=== PATIENT | female | born 1930 | race Caucasian/White ===

== ENCOUNTER 2016-12-04 17:28 | Emergency (ER) | payer OTHER ==
[2016-12-04] MEDS ORDERED: NORMAL SALINE 500 ML IV ONE (18:09)
[2016-12-04 18:10] LABS: BASOPHILS 0.3 % (0.0-2.0); HEMATOCRIT 27.9 % (36.0-48.0); HEMOGLOBIN 9.2 g/dL (12.0-16.0); LYMPHOCYTES 19.7 % (20.0-40.0); LYMPHOCYTES# 1.8 X 10^3uL (0.8-3.8); MEAN CELL VOLUME 88.8 fL (80.0-100.0); MEAN CORPUS. HGB CONCENTRATION 33.1 g/dL (32.0-36.0); MEAN CORPUSCULAR HEMOGLOBIN 29.4 pg (29.0-35.0); MEAN PLATELET VOLUME 7.6 fL (7.4-10.4); MONOCYTES 10.2 % (2.0-10.0); MONOCYTES# 0.9 X 10^3uL (0.2-1.0); NEUTROPHILS 69.8 % (54.0-75.0); NEUTROPHILS# 6.3 X 10^3uL (2.6-6.7); PLATELET COUNT 422 X 10^3uL (130-440); RED BLOOD COUNT 3.14 X 10^6uL (4.20-6.10); RED CELL DISTRIBUTION WIDTH 15.5 % (11.5-14.5)
[2016-12-04 18:16] LABS: URINE MUCUS NONE SEEN (Up to 25%); URINE RBC NONE SEEN (0-5/hpf); URINE SQUAMOUS EPITHELIAL CELL NONE SEEN (<= 15/hpf); URINE WBC NONE SEEN (0-4/hpf)
[2016-12-04 18:21] LABS: BLOOD UREA NITROGEN 32 mg/dL (7-17); CALCIUM 9.2 mg/dL (8.4-10.2); CHLORIDE 109 mmol/L (98-107); CREATININE 1.2 mg/dL (0.5-1.0); GLUCOSE 97 mg/dL (70-100); POTASSIUM 4.2 mmol/L (3.5-5.1); SODIUM 139 mmol/L (137-145)
[2016-12-04 18:24] LABS: URINE APPEARANCE CLEAR; URINE BILIRUBIN NEGATIVE (NEGATIVE); URINE BLOOD TRACE (NEGATIVE); URINE COLOR YELLOW; URINE GLUCOSE NORMAL (NEGATIVE); URINE KETONE NEGATIVE (NEGATIVE); URINE LEUKOCYTE ESTERASE NEGATIVE (NEGATIVE); URINE NITRITE NEGATIVE (NEGATIVE); URINE PH 5.5 (5-7); URINE PROTEIN 30mg/dL (1+) (NEG - TRACE); URINE SPECIFIC GRAVITY 1.025 (0.001-1.035); URINE UROBILINOGEN 1mg/dL (Normal) (NEG-1mg/dL)
[2016-12-04 18:25] LABS: URINE AMORPHOUS SEDIMENT UP TO 25%/lpf (Up to 25%); URINE BACTERIA NONE SEEN (<10/hpf)
--- NOTE | 2016-12-04 19:00 | CT REPORT ---
HISTORY: Fall. Dementia. COMPARISON: None. TECHNIQUE: Unenhanced axial CT of the head. Dose reduction technique was utilized. FINDINGS: There is moderate to marked dilatation of the lateral and third ventricles which are out of portion t o the degree of sulcal prominence raising the possibility of normal pressure hydrocephalus. There is mild dilatation of the ventricle. The basilar cisterns are patent. There is no mass lesion or midline shift. There is low attenuation in the periventricular and subcortical white matter which is nonspe cific, but likely due to small vessel ischemic disease. The cadet-white differentiation appears preser nelly with no evidence of acute infarct. There is no evidence of acute intracranial hemorrhage. The b vicky calvaria appears intact. There are bilateral cataract replacements. The visualized paranasal si nuses and mastoid air cells appear clear. There is moderate atherosclerosis involving the cavernous i nternal carotid and mild atherosclerosis involving the distal vertebral arteries. IMPRESSION: 1. Moderate to marked dilatation of the lateral and third ventricles which are out of proportion to the degree of sulcal prominence raising the possibility of normal pressure hydrocephalus. 2. Moderate white matter small vessel ischemic disease. 3. No evidence of acute intracranial hemorrhage. The results were communicated to SHAHEED WADE MD at 12/04/2016 6:56 PM. Final Electronic Signature: This report was electronically signed by Ricky Samuel MD on 12/04/2016 6: 58 PM. [place] /
--- NOTE | 2016-12-04 19:21 | ER PHYSICIAN DOCUMENTATION ---
Physician Documentation [facility] Name:Mariza Aleman Age:86 yrs Sex:Female :1930 Arrival Date:12/04/2016 Time:17:28 Bed4 Private MD: Junior Green Disposition: 12/04/16 18:56 Discharged to Home/Self Care. Impression: Dehydration, Head Injury, Chronic Dementia, Anemia. - Condition is Fair. - Discharge Instructions: DEHYDRATION (6y-Adult), DEMENTIA, Any Type, HEAD INJURY, No Wake-Up (Adult), [place]an Anemia - ANEMIA, Type Not Specified (Adult). - Medical Reconciliation form form. - Follow up: Private Physician; When: 2 - 3 days; Reason: Recheck today's complaints, Continuance of care. - Problem is new. - Symptoms are resolved. - Notes: Encourage fluids. Rest. Follow up with your physician as soon as possible upon returning home. Review your CT Scan with your Neurologist to rule out Normal Pressure Hydrocephalus. HPI: 12/04 17:35 This 86 yrs old Female presents to ER via Private Vehicle with complaints of cd Fall Injury. 17:35 Details of fall: The patient fell from an upright position, while walking. Onset: The cd symptom(s)/episode began/occurred acutely, 2 day(s) ago. Associated injuries: The patient sustained injury to the head, abrasion, contusion, hematoma. Associated signs and symptoms: Pertinent positives: confusion, memory problems, weakness, and blank stare earlier today. Also saying things that do not make sense. states she has Dementia and has had confused thinking for many months. Her daughter has not been around to see it. She has not been eating well or drinking many fluids. They travelled from [place] for a short vacation in [place]. They have been at this elevation for 5 days now., Pertinent negatives: abdominal pain, chest pain, headache, nausea, numbness, seizure, vomiting, Loss of consciousness: the patient experienced no loss of consciousness. Severity of symptoms: At their worst the symptoms were moderate, in the emergency department the symptoms have resolved, and did so earlier today. The patient has experienced similar episodes in the past, chronically, and the symptoms today are exactly the same, for months per the patient's . Historical: - Allergies: No known drug Allergies; - Home Meds: 1. aspirin 81 mg oral tab 2. calcium carbonate 650 mg calcium (1,625 mg) oral tab 3. carvedilol 25 mg oral tab 4. Co Q-10 100 mg oral cap 5. Diflucan Oral 6. hydroxychloroquine oral 7. levothyroxine 50 mcg oral tab 1 tab once daily 8. Benicar 5 mg oral tab - PMHx: Hypertension; HYPOTHYROIDISM; CAD; DEMENTIA; ARTHRITIS; - PSHx: CABG; - Tetanus: < 10 years. - Ebola Screening: : Patient negative for fever greater than or equal to 101.5 degrees Fahrenheit, and additional compatible Ebola Virus Disease symptoms. Patient denies exposure to infectious person. Patient denies travel to an Ebola-affected area in the 21 days before illness onset. No symptoms or risks identified at this time. . - Immunization history: Pneumococcal vaccine is up to date, Flu Vaccine < 1 year. - Social history: Smoking status: Patient states was never smoker of tobacco. Patient/guardian denies using alcohol, street drugs. ROS: 18:20 Eyes: Negative for injury, pain, redness, discharge, blurry vision and loss of vision. cd ENT: Negative for injury, pain, epistaxis and discharge. Neck: Negative for injury, pain, stiffness and swelling. Cardiovascular: Negative for chest pain, palpitations, edema and pleuritic pain. Respiratory: Negative for shortness of breath, dyspnea on exertion, cough, sputum production, wheezing, hemoptysis and pleuritic chest pain. Abdomen/GI: Negative for abdominal pain, nausea, vomiting, diarrhea, constipation, distension, melena, hematochezia and hematemesis. Back: Negative for injury, pain or muscle spasms. 18:20 : Negative for injury, bleeding, discharge, dysuria, frequency, urgency and swelling. cd 18:20 Constitutional: Positive for poor PO intake, Negative for chills, fever. 18:20 MS/extremity: Negative for acute changes, injury or acute deformity. 18:20 Skin: Positive for laceration(s), of the left sikhism. 18:20 Neuro: Positive for altered mental status, weakness, confusion, disorientation, Negative for dizziness, gait disturbance, headache, numbness, seizure activity, syncope, near syncope, tingling, visual changes. 18:20 All other systems are negative. Exam: ENT: Nares patent. No nasal discharge, no septal abnormalities noted. Tympanic membranes are normal and external auditory canals are clear. Oropharynx with no redness, swelling, or masses, exudates, or evidence of obstruction, uvula midline. Mucous membranes dry Chest/axilla: Normal chest wall appearance and motion. Nontender with no deformity. No lesions are appreciated. Cardiovascular: Regular rate and rhythm with a normal S1 and S2. No gallops, murmurs, or rubs. Normal PMI, no JVD. No pulse deficits. Respiratory: Lungs have equal breath sounds bilaterally, clear to auscultation and percussion. No rales, rhonchi or wheezes noted. No increased work of breathing, no retractions or nasal flaring. Abdomen/GI: Soft, non-tender, with normal bowel sounds. No distension or tympany. No guarding or rebound. No evidence of tenderness throughout. Back: No spinal tenderness. No costovertebral tenderness. Full range of motion. Skin: Warm, dry with normal turgor. Normal color with no rashes, no lesions, and no evidence of cellulitis. 18:20 MS/ Extremity: Pulses equal, no cyanosis. Neurovascular intact. Full, normal range cd of motion. 18:20 Constitutional: The patient appears alert, awake, non-diaphoretic, non-toxic, well developed, well nourished, frail. 18:20 Head/face: Noted is abrasion(s), that are moderate, of the left temporal area, contusion, that is superficial, of the left temporal area, hematoma, that is mild, of the left temporal area, Basilar skull fracture findings: the patient does not have obvious signs of a basilar skull fracture, no Wyatt signs, no hemotympanum, no nasal drainage, no racoon eyes, Sinus tenderness, is not appreciated. 18:20 Neck: External neck: is normal, no acute changes, C-spine: appears grossly normal, no acute changes, vertebral tenderness, is not appreciated. 18:20 Musculoskeletal/extremity: Exam is negative for acute changes. 18:20 Neuro: Orientation: appropriate for stated age, to person, place & time. Mentation: lucid, able to follow commands, Memory: immediate memory is impaired, remote memory is impaired, Cranial nerves: CN II- XII are normal as tested, Motor: is normal, Sensation: is normal. Vital Signs: 17:56 BP 175 / 52; Pulse 70; Resp 19; Temp 98.0; Pulse Ox 94% on R/A; Weight 34.02 kg; Height mk2 5 ft. (152.40 cm); Pain 0/10; 18:32 BP 169 / 53; Pulse 66; Resp 18; Pulse Ox 96% on R/A; tg 18:36 BP 169 / 53; Pulse 67; Resp 16; Pulse Ox 97% on R/A; Pain 0/10; mk2 17:56 Body Mass Index 14.65 (34.02 kg, 152.40 cm) mk2 [place] Coma Score: 18:20 Eye Response: spontaneous(4). Verbal Response: confused(4). Motor Response: obeys cd commands(6). Total: 14. MDM: 17:58 Patient medically screened. cd 19:00 Differential diagnosis: abrasion, closed head injury, contusion, fracture, ICH, UTI, cd Anemia. Data reviewed: vital signs, nurses notes, old medical records, lab test result(s), EKG, radiologic studies, CT scan, and as a result, I will discharge patient. Data interpreted: Pulse oximetry: on room air is 96 %. Interpretation: normal. Counseling: I had a detailed discussion with the patient and/or guardian regarding: the historical points, exam findings, and any diagnostic results supporting the discharge/admit diagnosis, lab results, radiology results, the need for outpatient follow up, for a recheck, for a referral to a specialist, with the patient's primary care provider, a neurologist, to return to the emergency department if symptoms worsen or persist or if there are any questions or concerns that arise at home. Response to treatment: the patient's symptoms have markedly improved after treatment, the patient's condition has returned to base line, and as a result, I will discharge patient. 12/04 18:14 Order name: CBC AUTO DIF, MDIF/RMOR IF IND; Complete Time: 18:55 EDMS 12/04 Interpretation: Normal Except: HEMOGLOBIN 9.2; HEMATOCRIT 27.9; Anemia./ Chronic. cd 12/04 18:25 Order name: BASIC METABOLIC PANEL; Complete Time: 18:55 EDMS 12/04 18:55 Interpretation: CARBON DIOXIDE 20; BLOOD UREA NITROGEN 32; CREATININE 1.2; Dehydration. cd 12/04 18:25 Order name: UA W/ MICRO -CULTURE IF IND; Complete Time: 18:55 EDMS 12/04 18:55 Interpretation: Normal. 12/04 19:02 Order name: CAT SCAN; HEAD W/O CON [id number]; Complete Time: 16:15 EDMS 12/06 16:15 Interpretation: Abnormal: See Report / Possible Normal Pressure Hydrocephalus. 12/04 17:59 Order name: EKG - 12 Lead; Complete Time: 18:03 cd Dispensed Medications: 18:02 Drug: NS 0.9% 500 ml; Route: IV; Rate: bolus; Site: left antecubital; mk2 19:21 Follow up: IV Status: Completed infusion; IV Intake: 500ml mk2 Signatures: Junior Wallis MD MD cd Kruger, Meg, RN RN mk2
--- NOTE | 2016-12-04 19:21 | ER NURSING DOCUMENTATION ---
Nurse's Notes [facility] Name:Mariza Aleman Age:86 yrs Sex:Female :1930 Arrival Date:12/04/2016 Time:17:28 Bed4 Private MD: Diagnosis:Dehydration;Head Injury;Chronic Dementia;Anemia Presentation: 12/04 17:31 Acuity: HIEU 2 tg 17:45 Presenting complaint: Patient states: Pt denies complaints at this time. Child states: mk2 Daughter states increased confusion and weakness. "She hasn't eaten today and she wasn't getting up." Pt and family are visiting from [place]. Daughter also states she fell out of bed on and had some bleeding to the left side of the head that they got stopped. Daughter is now concerned about a possible head injury. Presenting complaint:. Transition of care: Home. Time Last Known Well for the patient was states this behavior has been going on "for weeks. It's just that her daughter hasn't been around to see it. ". 17:45 Method Of Arrival: Private Vehicle mk2 Triage Assessment: 17:55 General: Appears in no apparent distress, Behavior is anxious, appropriate for age. mk2 Pain: Denies pain. Neuro: Level of Consciousness is awake, alert, Oriented to person, place, time, event, Band Saw Runner are equal bilaterally Moves all extremities. Gait is unsteady, Speech is normal, Facial symmetry appears normal. Cardiovascular: Heart tones S1 S2. Respiratory: Breath sounds are clear bilaterally. Injury Description: small abrasion to left side of head. Historical: - Allergies: No known drug Allergies; - Home Meds: 1. aspirin 81 mg oral tab 2. calcium carbonate 650 mg calcium (1,625 mg) oral tab 3. carvedilol 25 mg oral tab 4. Co Q-10 100 mg oral cap 5. Diflucan Oral 6. hydroxychloroquine oral 7. levothyroxine 50 mcg oral tab 1 tab once daily 8. Benicar 5 mg oral tab - PMHx: Hypertension; HYPOTHYROIDISM; CAD; DEMENTIA; ARTHRITIS; - PSHx: CABG; - Tetanus: < 10 years. - Ebola Screening: : Patient negative for fever greater than or equal to 101.5 degrees Fahrenheit, and additional compatible Ebola Virus Disease symptoms. Patient denies exposure to infectious person. Patient denies travel to an Ebola-affected area in the 21 days before illness onset. No symptoms or risks identified at this time. . - Immunization history: Pneumococcal vaccine is up to date, Flu Vaccine < 1 year. - Social history: Smoking status: Patient states was never smoker of tobacco. Patient/guardian denies using alcohol, street drugs. Screenin:01 Infectious Disease Risk None. Abuse screen: Denies threats or abuse. Nutritional mk2 screening: Pt very thin. Hasn't eaten today. Assessment: 18:03 See Triage Assessment done by same RN. mk2 Vital Signs: 17:56 BP 175 / 52; Pulse 70; Resp 19; Temp 98.0; Pulse Ox 94% on R/A; Weight 34.02 kg; Height mk2 5 ft. (152.40 cm); Pain 0/10; 18:32 BP 169 / 53; Pulse 66; Resp 18; Pulse Ox 96% on R/A; tg 18:36 BP 169 / 53; Pulse 67; Resp 16; Pulse Ox 97% on R/A; Pain 0/10; mk2 17:56 Body Mass Index 14.65 (34.02 kg, 152.40 cm) mk2 [place] Coma Score: 18:20 Eye Response: spontaneous(4). Verbal Response: confused(4). Motor Response: obeys cd commands(6). Total: 14. ED Course: 17:30 Patient arrived in ED. ds 17:31 Triage completed. tg 17:34 Yen Fishman, RN is Primary Nurse. mk2 17:36 EKG done. (by ED staff). Reviewed by Junior Wallis MD. mk2 17:57 Arm band placed on Bed in low position Call Light in Reach Gowned HOB Elevated Side mk2 rails up x2. 17:58 Junior Wallis MD is Attending Physician. cd 18:01 Valuables Remains with patient. monitoring specialist on. Pulse ox on. NIBP on. Warm blanket mk2 given. 18:02 Inserted peripheral IV: 20 gauge in left antecubital area and blood collected. mk2 18:[address] ms 18:20 Quick cath inserted 16 Fr. mk2 18:28 Patient moved back from CT. ms Administered Medications: 18:02 Drug: NS 0.9% 500 ml; Route: IV; Rate: bolus; Site: left antecubital; mk2 19:21 Follow up: IV Status: Completed infusion; IV Intake: 500ml mk2 Intake: 19:21 IV: 500ml; Total: 500ml. 2 Outcome: 18:56 Discharge ordered by . ev 19:17 Discharged to home via wheelchair. mk2 19:17 Condition: stable 19:17 Discharge instructions given to patient, family, Instructed on discharge instructions, follow up and referral plans. 19:17 IV D/Giovany 19:20 Patient left the ED. mk2 12/05 09:39 Discharge F/U Call: Unable to reach: no answer lp 10:20 Discharge F/U Call: Spoke with: spouse with permission of patient. Are you having any lp pain? no. Have you made a f/u appointment? yes Overall Care on a scale of 1-10 with 10 being the best care, you rate our care as: the rating of 10. What is the one thing you feel we could do to improve? Patient's answer: Much better, getting ready to fly back to [place] today. Signatures: Toño Flowers RN RN tg Pavlish, Lena, RN RN lp Srot, Zee, Reg Reg Junior Fernandes MD MD cd Strickland, Mary ms Kruger, Meg, RN RN 2
== END 2016-12-04 19:20 | disposition home or self-care (01) ==
LOC: ER 17:28
DX: E86.0 Dehydration (principal); S00.81XA Abrasion of other part of head, initial encounter; S00.83XA Contusion of other part of head, initial encounter; W19.XXXA Unspecified fall, initial encounter; Y93.01 Activity, walking, marching and hiking; F03.90 Unspecified dementia, unspecified severity, without behavioral disturbance, psychotic disturbance, mood disturbance, and anxiety; D64.9 Anemia, unspecified; R53.1 Weakness; R93.0 Abnormal findings on diagnostic imaging of skull and head, not elsewhere classified; I49.1 Atrial premature depolarization; I44.7 Left bundle-branch block, unspecified; I10 Essential (primary) hypertension; I25.10 Atherosclerotic heart disease of native coronary artery without angina pectoris; Z95.1 Presence of aortocoronary bypass graft; Z79.82 Long term (current) use of aspirin; Z79.899 Other long term (current) drug therapy
CPT/HCPCS: 70450; 80048; 81001; 85025; 93005; 96360; 99285; J7040